=== PATIENT | female | born 1930 | race Caucasian/White ===

== ENCOUNTER 2017-09-27 13:22 | Inpatient (IN) | payer OTHER ==
[~2017-09-27] VITALS: Ht 152.4 cm; Wt 83.5 kg
[~2017-09-27 13:22] MED LIST: ADVAIR 250-501 EACH; ALBUTEROL0.63 MG/3 INH; ALBUTEROL2.5 MG/3 M IH; ALBUTEROL2.5 MG/31; ALBUTEROL2.5 MG/31 INH; ALLOPURINOL 10100 M1 PO; AMOXICILLIN 50500 MG PO; AMOXICILLIN875 MG; ASA5UEC PO; ASPIRIN EC81 M1 PO; ASPIRIN325 PO; AUGMENTIN 875875 MG PO; BENAZEPRIL HCL40 MG; BENTYL 10 MG CA10 MG PO; CALCIUM 600 +1 EAC1; CARDURA4 MG PO; CARVEDILOL12.5 MG PO; CARVEDILOL3.125 MG PO; CEFTIN500 MG PO; CIPRO500 MG PO; COLACE100 MG PO; DIALYVITE TABL1 EACH; DIAZEPAM 2MG TAB2 MG PO; DID NOT BRING LIST; DILTIAZEM 24HR180 M1 PO; DILTIAZEM ER180 M1; DUONEB 2.5-0.5 M3 ML; FENTANYL PA25 MCG/HR TRANSDERM; FIORICET 50-301 EACH PO; FISH OIL 1,0001 EAC8 PO; FLONASE 0.05%50 MCG NASAL; FOLIC ACID 1 MG1 MG; GLUCOPHAGE500 MG; HYDROCODON-ACE1 EAC5; HYDROCODON-ACE1 EAC5 PO; HYDROCODON-ACE1 EAC7 PO; K-DUR 20 MEQ T20 MEQ; KEFLEX500 MG PO; KENALOG60 GM TOP; KLOR-CON 10 ER10 MEQ PO; KLOR-CON 1010 MEQ PO; LANOXIN 0.120.125 M1 PO; LANOXIN 0.120.125 M2; LANTUS; LANTUS SUBQ; LASIX 40 MG TAB40 M1; LASIX 40 MG TAB40 M1 PO; LASIX 40 MG TAB40 M2 PO; LASIX 80 MG TAB80 MG PO; LIPITOR 20 MG T20 M1 PO; LISINOPRIL2.5 MG PO; LOTRIMIN30 GM; LOVASTAT40; LOVASTAT40 PO; LOVASTATIN; MACROBID 100 M100 M1 PO; MAGOX 400400 MG PO; MEDROLDOSEPACK PO; METOLAZONE 2.52.5 MG PO; MULTIVITAMINS; MULTIVITAMINS1 EAC7; NAMENDA 10 MG T10 MG PO; NAMENDA XR28 MG PO; NEURONTIN 300300 M1; NEURONTIN 300M300 M2 PO; NEXIUM40 MG PO; NORVASC 5 MG TAB5 MG PO; NOVOLOG FL100 UNIT/M SUBQ; NOVOLOG100 UNIT/1; NOVOLOG100 UNIT/1 SQ; NOVOLOG100 UNIT/1 SUBQ; OXYCODONE HCL40 MG PO; OXYCONTIN40 MG; PEPTO-BISM262 MG/15; PERCOCET 5-3251 EACH; PERCOCET 5-3251 EACH PO; PRAVASTATIN SOD10 MG PO; PROAIR HFA8.5 GM IH; PROTONIX40 M2; PROTONIX40 M2 PO; SEROQUEL 25 MG25 MG PO; SINGULAIR 10 MG10 M1 PO; SPIRONOLACTONE25 M1 PO; SYMBICORT160 MCG/4. INH; TRIAMCINOLONE ACE TOP; VALIUM5 MG PO; VENTOLIN HFA 1818 GM INH; VITAMIN C120 GM; VITAMIN E400 UNIT; WOMEN'S DAILY1 EAC2; ZOFRAN4 MG; ZOLOFT25 MG PO; ZOLOFT50 MG PO; ZYRTEC10 M2; ZYRTEC10 M2 PO; [UNRECOGNIZED DRUG - OTHER]
[2017-09-27 13:29] VITALS: BP 177/80
[2017-09-27] MEDS ORDERED: OXYBUTYNIN 5 MG5 M2 PO (13:36)
[2017-09-27] MEDS ORDERED: DURAGESIC1 EAC1 TRANSDERM (13:36)
[2017-09-27 13:58] LABS: ABSOLUTE EOSINOPHILS 0.1 thou/uL (0.0-0.7); ABSOLUTE LYMPHOCYTES 1.1 thou/uL (0.8-5.3); ABSOLUTE MONOCYTES 0.4 thou/uL (0.0-1.2); ABSOLUTE NEUTROPHILS 4.6 thou/uL (1.6-8.1); BASOPHILS 0.7 %; EOSINOPHILS 1.1 %; HEMATOCRIT 42.2 % (37.0-47.0); LYMPHOCYTES 17.3 %; MCH 30.9 pg (26.0-34.0); MCHC 33.3 g/dL (28.0-37.0); MCV 92.9 fL (80.0-100.0); MONOCYTES 6.4 %; NUCLEATED RBCS 0 /100WBC; PLATELET COUNT* 203 thou/uL (150-400); POLYS 74.5 %; RBC 4.55 mil/uL (4.20-5.00); RDW-CV 13.6 % (10.5-14.5); WBC 6.2 thou/uL (4.0-11.0)
[2017-09-27 13:58] LABS: URINE BLOOD NEGATIVE (Negative); URINE CLARITY CLEAR; URINE COLOR YELLOW; URINE GLUCOSE-RANDOM 3+ (Negative); URINE KETONES 2+ (Negative); URINE LEUKOCYTES-REFLEX NEGATIVE (Negative); URINE NITRITE-REFLEX NEGATIVE (Negative); URINE PROTEIN TRACE (Negative); URINE SPECIFIC GRAVITY 1.015 (1.005-1.030); URINE UROBILINOGEN 0.2 E.U./dl (0.2-1.0)
[2017-09-27 13:59] LABS: ICTOTEST (BILI CONFIRMATORY) Negative (Negative); URINE BILIRUBIN 1+ (Negative)
[2017-09-27 14:02] LABS: CALCIUM 9.5 mg/dL (8.5-10.1); CREATININE 1.2 mg/dL (0.6-1.3); POTASSIUM 4.1 mmol/L (3.5-5.1)
[2017-09-27 14:06] LABS: ALBUMIN 4.1 g/dL (3.4-5.0); TOTAL BILIRUBIN 0.7 mg/dL (<0.1-1.0); TOTAL PROTEIN 8.1 g/dL (6.4-8.2)
[2017-09-27 14:17] LABS: BE -5.7 mmol/L (-2 to +3); HCO3 19.2 mmol/L (22.0-26.0); PCO2 35.5 mmHg (35.0-45.0); PO2 85.6 mmHg (75.0-100.0)
[2017-09-27 16:59] VITALS: BP 172/80
[2017-09-27 17:25] VITALS: BP 152/76
--- NOTE | 2017-09-27 18:14 | NUR ---
PT ARRIVED TO THE FLOOR AT 1712. PT IS AWAKE BUT CONFUSED AND COMBATIVE. SHE WOULD NOT ALLOW THIS NURSE TO COMPLETE HER SKIN ASSEWSSMENT. SHE APPEARS TO HAVE SOME DISCOLORATION ON HER BUTTOCKS AND IN HER GROIN. SHE HAS SCATTERED BRUISING TO BUE AND HANDS, WELL A FEW SCABS AND SCARS TO HER FOREARMS. PT APPEARS TO BE SEEING THINGS SHE REACHES FOR THINGS THAT ARE NOT THERE AND SHE ALSO RESPONDS LIKE SHE HAS BEEN ASKED A QUESTION WHEN THERE IS NO ONE ELSE IN THE ROOM. NURSING WILL CONTINUE TO MONITOR.
[2017-09-27 21:30] VITALS: BP 147/68
[2017-09-28] VITALS: BP 134/58
[2017-09-28 04:34] VITALS: BP 147/57
--- NOTE | 2017-09-28 04:56 | NUR ---
Pt awake but confused at beginning of shift. Granddaughter and great-granddaughter in room visiting until around 2030 or 2100. Pt then drowsy/sleepy for remainder of shift. Turned q2h. Had not voided by 0245. Bladder scan showed 489 mls. Straight cath performed and yielded 375 mls concentrated yellow urine. Pt moaned during procedure, but did not fully awaken. At one point shortly afterward, pt opened her eyes and asked, "May I have some pain medicine?" and then closed her eyes. Attempted to clarify with her regarding how much pain and where, but pt did not respond. VSS. Will continue to monitor.
[2017-09-28 10:19] LABS: HEMATOCRIT 37.3 % (37.0-47.0); HEMOGLOBIN 12.6 gm/dL (12.0-15.0); MCH 31.1 pg (26.0-34.0); MCHC 33.9 g/dL (28.0-37.0); MCV 91.8 fL (80.0-100.0); MPV 9.3 fl. (7.2-11.1); RBC 4.06 mil/uL (4.20-5.00); RDW-CV 13.6 % (10.5-14.5); WBC 7.5 thou/uL (4.0-11.0)
[2017-09-28 10:26] LABS: CALCIUM 8.7 mg/dL (8.5-10.1); CREATININE 0.8 mg/dL (0.6-1.3); POTASSIUM 3.3 mmol/L (3.5-5.1)
[2017-09-28 11:30] VITALS: BP 143/64
--- NOTE | 2017-09-28 14:12 | NUR ---
CM ASSESSMENT: Spoke with Pt's granddaughter, Linda, via phone. Pt resides at home with granddaughter. Pt does have dementia. Granddtr states that Pt has been doing well at home, up until about 2-3 days ago, at which time Pt began hallucinating and being combative. There is always family at home with her 24 hours/day. Pt uses a walker or wc for mobility. Hx of HH and SNF at [facility], tiarrar states that she does [place], stating "she just hits at them, its not fair to the HH staff." Granddtr assist with bathing/grooming and does all of the cooking and cleaning. Pt is able to feed herself. Goal is for Pt to return home once medically stable. Following.
--- NOTE | 2017-09-28 16:28 | NUR ---
RECEIVED REPORT. ASSUMED CARE OF PT AT 0730. PT ALERT, ORIENTED TO SELF AND PLACE. VERY [place], WRITING ON WHITE BOARD TO COMMUNICATE. VSS, O2 SAT 96% ON RA. DRYING CAN WORKER IN PLACE SR. AM ASSESSMENT AND VITALS COMPLETED CHARTED. IV SALINE LOCKED AND WRAPPED WITH COBAN. PT STATED HER NECK HURT THIS AM - EDUCATED THAT PAIN MEDICATIONS ARE BEING HELD AT THIS TIME PER DR ORDER, TO ALLOW LOC TO IMPORVE. PT COMMUNICATES UNDERSTANDING AND STATES SHE IS "OKAY". PT HAS NOT COMPLIANED OF PAIN ANY MORE SO FAR THIS SHIFT. PT EATING AND DRINKING WITHOUT ISSUE. PT UP X1 ASSIST TO BEDSIDE COMMODE, LARGE BM NOTED. PT INCONTINENT OF URINE SOME IN THE BED, BUT CONTINUED TO VOID WHEN PLACED ON BEDSIDE COMMODE. FAMILY REPORTS SHE NEEDS REMINDERS TO VOID AND THAT SHE NEEDS TO BE PLACED ON COMMODE ROUTINELY. PT CLEANED UP AND IS NOW SITTING IN BEDSIDE RECLINER. FAMILY AT BEDSIDE THIS MORNING THROUGH LUNCH-TIME. PT COMPLETED U/S CAROTIDS AND EEG. SEE RESULTS. PT BEING REPOSITIONED FREQUENTLY. CALL LIGHT IS WITHIN REACH. HIGH FALL RISK PRECAUTIONS IN PLACE. HOURLY ROUNDING PERFORMED. WILL CONTINUE TO MONITOR.
[2017-09-28 16:45] VITALS: BP 141/56
--- NOTE | 2017-09-28 18:24 | NUR ---
PT REMAINS ALERT AND ORIENTED TO SELF AND PLACE. VVS. O2 SAT >90% ON RA. STITCHING MACHINE SETTER REMAINS IN PLACE WITH NO CHANGES THIS SHIFT. PT CONTIUES TO EAT AND DRINK WITHOUT ISSUE - MINIMAL SET UP REQUIRED. IV SALINE LOCKED. PT HAS DENIED PAIN OR DISCOMFORT THE REST OF THIS SHIFT. PT REPOSITIONED Q2HRS FOR COMFORT. PT CURRENTLY RESTING IN BEDSIDE CHAIR. CALL LIGHT IS WITHIN REACH, FALL PRECAUTIONS ARE IN PLACE. HOURLY ROUNDING PERFORMED. WCTM FOR DURATION OF SHIFT.
[2017-09-28 20:00] VITALS: BP 127/69
--- NOTE | 2017-09-28 23:15 | NUR ---
BEGAN CARE OF PT AT 1915, PT SLEPT DURING BED SIDE REPORT CHANGE, WAS IN THE RECLINER AT THAT TIME WITH CHAIR ALARM ON, DURING RE-ASSESSMENT PT WAS A/O TO NAME//LOCATION, VSS, FREE FROM SOA/PAIN WHEN ASKED, Q2T IN PLACE, HOURLY ROUNDING IN PLACE, FALL PRECAUTIONS IN PLACE WITH CHAIR ALARM ON AT THIS TIME, PT MOVED TO BED AT AND BED IN LOW LOCKED POSITION WITH ALARM SET, CALL LIGHT IN REACH, WHITE BOARD AT BEDSIDE DUE TO PT HARD OF HEARING, MEDS/ASSESSMENT PER CHARTING, WILL CONT TO MONITOR.
[2017-09-29] VITALS: BP 119/55
--- NOTE | 2017-09-29 02:46 | NUR ---
PT WAS BLADDER SCANNED PRIOR TO BEING UP TO BSC AND POST VOID, PT HAD >200 CC PRIOR TO VOIDING AND AFTER POST VOID 80'S CC REMAINED PER BLADDER SCANNER.
[2017-09-29 04:00] VITALS: BP 114/46; BP 142/74
--- NOTE | 2017-09-29 11:42 | NUR ---
Spoke with SLURRY TANK TENDER, plan dc tomorrow to home with family.
[2017-09-29 12:25] VITALS: BP 148/65
--- NOTE | 2017-09-29 12:57 | NUR ---
RECEIVED REPORT. ASSUMED CARE OF PT AROUND 0730. PT ALERT, ORIENTED TO PERSON AND SOMEWHAT PLACE; CONFUSED, BUT PLEASANT. VERY [place] - USING SMALL WHITE BOARD TO ASSIST WITH COMMUNICATION. VSS. O2 SAT 96% ON RA. CHERRY GROWER IN PLACE TRACING SR WITH 1 DEGREE AV BLOCK. AM ASESSMENT AND VITALS COMPLETED CHARTED. IV SALINE LOCKED. PT REPORTS BACK PAIN; UNABLE TO RATE. OPIOID PAIN MEDICATIONS BEING HELD PER DR ORDER; PT REPOSITIONED AND MADE MORE COMFORTABLE. PT DOES NOT APPEAR IN ANY PAIN OR DISCOMFORT - NO GRIMACING/SQUIRMING/FROWNING OR MOANING. WILL CONTINUE TO CLOSELY MONITOR FOR PAIN. PT EATING AND DRINKING WITHOUT ISSUE, MINIMAL SET UP NEEDED. PT UP TO BEDSIDE COMMODE WITH ASSIST X1 TO VOID - URINATING WITHOUT ISSUE. NO BM'S YET THIS SHIFT. MRSA SWAB PENDING. ISOLATION MAINTAINED. HIGH FALL RISK PRECAUTIONS IN PLACE. CALL LIGHT IS WITHIN REACH. WCTM. HOURLY ROUNDING PERFORMED.
[2017-09-29 15:20] VITALS: BP 116/56
--- NOTE | 2017-09-29 19:23 | NUR ---
PT PROGRESSING TOWARDS GOALS. VSS. O2 SAT REMAINS >90% ON RA. PT REMAINS ALERT ORIENTED TO SELF AND PLACE. ELECTRICAL TECHNICIAN INSTRUCTOR IN PLACE WITH NO CHANGES THIS SHIFT. IV SALINE LOCKED. PT HAS DENIED PAIN OR DISCOMFORT FOR THE REST OF THE SHIFT. DOES NOT APPEAR IN ANY PAIN - FLACC SCORE 0. PT EATING AND DRINKING WITHOUT ISSUE. PT UP WITH ASSIST X1 TO THE BEDSIDE COMMODE, VOIDING WITHOUT ISSUE. PT CURRENTLY RESTING IN BEDSIDE CHAIR. FALL PRECAUTIONS IN PLACE. CALL LIGHT IS WITHIN REACH. HOURLY ROUNDING PERFORMED.
[2017-09-29 20:00] VITALS: BP 132/71
[2017-09-30] VITALS: BP 120/70
[2017-09-30 04:00] VITALS: BP 126/73
--- NOTE | 2017-09-30 05:59 | NUR ---
ASSUMED CARE OF PT AT 1930, NURSING ASSESSMENT COMPLETED AT START OF SHIFT, NO S/S OF PAIN OBSERVED AT START OF SHIFT. PT ON TELE MONITOR, TRACING SINUS RHYTHM WITH 1ST DEGREE AV BLOCK. PT ALERT TO SELF, SITTING IN BEDSIDE RECLINER, REQUIRES PROMPTING TO VOID, REFUSED TO IN BED THIS SHIFT, HOURLY ROUNDING COMPLETED, FALL PRECAUTIONS IN PLACE, CALL LIGHT WITHIN REACH. NO FALLS THIS SHIFT. PT C/O BACK PAIN AT 0600, DR. RUIZ NOTIFIED, AWAITING CALL BACK FOR ORDERS.
--- NOTE | 2017-09-30 07:30 | NUR ---
ASSUMED CARE OF PT ASSESSED AND DOCUMENTED. PT IS ON CARDIAC MONITER TRACING SR 1ST DEGREE. PT IS ALERT TO SELF. SHE LAUGHS WHENEVER I ENTER THE ROOM. SHE IS EXTREMELY [place] AND STATES SHE LOST HER HEARING AID. 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 SHE IS ON FALL RISK PER FACILITY PROTOCOL. PT IS ON ROOM AIR AND HAS NO C/O PAIN. BED IS IN LOW POSITION CALL LIGHT IS IN REACH. WM.
[2017-09-30 08:00] VITALS: BP 141/69
--- NOTE | 2017-09-30 11:18 | NUR ---
Pt discharging to home today. Updated Pt's son, unable to reach Pt's granddtr, Linda, VM is full and not taking messages. No needs.
[2017-09-30 11:35] VITALS: BP 134/61
[2017-09-30 13:01] VITALS: BP 134/61
--- NOTE | 2017-09-30 17:37 | NUR ---
PT D/C'D TO HOME. IV AND CARDIAC MONITER D/C'D. ALL CONSULTS OK WITH D/C. EDUCATION GIVEN RE FOLLOW-UP, MEDICATIONS, AND DR ORDERS TO DPOA. ALL BELONGINGS PACKED UP AND LEFT WITH PT ACCOMPANIED BY FAMILY MEMBER AND STAFF.
--- NOTE | 2017-10-06 19:10 | CON ---
[address] [address] CONSULTATION Name: MELODY GARCIA Room: [address] IN M.R.#: [id number] Admission: 09/27/17 Attend Phys: Hong Epps MD Discharge: 09/30/17 Date of : 31 Report #: [id number] THIS REPORT FOR: //name// CC: Hong Kolb DATE OF SERVICE: 09/28/2017 HISTORY OF PRESENT ILLNESS: This is an 87-year-old female patient who was evaluated by me for altered mental status. This patient's history is very difficult to determine. The patient is extremely hard of hearing. She has large records in the computer and I reviewed that. Apparently, she had some hallucination and combativeness and some paranoia yesterday. She said she does not remember that. Apparently, there was some speech difficulty also when it happened and they were not able to understand what she was saying. REVIEW OF SYSTEMS: Mostly from the record because this patient is not able to hear very well. This patient was seen by Dr. Badillo in the middle of last year and looks like at that time, this patient had presented with difficulty with speaking. That time also she had a UTI. They did some workup at that time on this patient and looks like the workup included an MRI of the brain as well as MRA of the head. They were both unremarkable except for possibility of atherosclerotic disease in the brain. She did not have a carotid Doppler at that time, but she did have a carotid Doppler done in 2013, which was unremarkable. She also had other MRIs done in the past and in fact in 2012, she had an MRA of the carotid, which was unremarkable. In 2013, she also had an MRA of the head and that was also unremarkable. In 2013, she was also admitted with some speech difficulty. She also had multiple other symptoms at that time. Review of system is also positive for being very hard of hearing. She had some underlying dementia, the extent of which is not known. She also has problem with pain medications. Previously, she had chest pain, but does not look like she is having any active chest pain now. She has been on multiple medications and looks like she has a history of aortic stenosis, diabetes, skin cancer. There was a question of atrial fibrillation, colon resection, hypertension. She has chronic kidney disease. She has a diastolic CHF. I carried out 14-point review of system and looks like this is her relevant 14-point review of system. PAST MEDICAL HISTORY: Positive for a history of encephalopathy. FAMILY HISTORY: According to her is negative for early age stroke. SOCIAL HISTORY: She said she does not smoke and does not drink alcohol. PHYSICAL EXAMINATION: Limited because of her hearing problems, but she is responsive. She can talk. She does not know what month it is. She did not get the day right either, but speech looks intact. Cranial nerve examination [address] [place] [address] CONSULTATION Name: MELODY GARCIA Room: [address] IN ..#: [id number] Admission: 09/27/17 Attend Phys: Hong Epps MD Discharge: 09/30/17 Date of : 31 Report #: [id number] was attempted, the best I can tell, it does not appear to show any focality. Strength, sensation, reflexes and tone looks symmetrical. There is no cerebellar sign. She could not cooperate with the fundus examination. There is no meningeal sign. There is no carotid bruit. There is no thyroid mass. Pulses are difficult to feel, but she has no edema, cyanosis or jaundice. She is a reasonably well-built individual who does not have any dysmorphic features of eyes, ears and face. Her hearing is markedly impaired, but vision looks intact. Cardiac examination does not appear to be showing any abnormality of the heart sounds, though there may be a murmur there. The patient does not have any respiratory difficulty and does not appear to have any rhonchi. Blood pressure is 147/57, respirations 18, pulse 88, temperature is 98. LABORATORY DATA: Indicate a normal white count and normal sodium. She did not have any imaging study of the brain. IMPRESSION: 1. Altered mental status. 2. History of speech difficulty, but the patient has similar speech difficulty since 2012 by review of the records. 3. History of hallucination, which is probably because of psychiatric reasons and behavior disturbances for dementia. 4. Significant dementia. 5. 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 RECOMMENDATIONS: 1. Minimize psychotropic and pain medication. 2. Speech difficulty may be just part of encephalopathy. It is unlikely to be TIA, but because of a prior MRI report, we will exclude that. 3. For encephalopathy, basically watch and see if she becomes better. 4. I agreed with discussion with the family to see how aggressive they want to be and it will be desirable to be very conservative in this patient and may be even limit the workup in the future. Thank you very much for this referral. <ELECTRONICALLY SIGNED> By: Kranthi Garcia MD 10/06/17 1910 1022 [id number] Garcia MD /isaac
--- NOTE | 2017-10-06 19:10 | EEG ---
[address] [address] EEG STUDY REPORT Name: MELODY GARCIA Room: [address] IN M.R.#: [id number] Admission: 09/27/17 Attend Phys: Hong Epps MD Discharge: 09/30/17 Date of : 31 Report #: [id number] THIS REPORT FOR: //name// CC: Hong Kolb DATE OF SERVICE: 09/28/2017 DATE OF EE09/28/2017. This patient is being evaluated for confusion. Background activity in this patient's EEG is about 8 Hz and 30 microvolts. It is intermixed with theta range slowing on both sides. Photic stimulation was unremarkable. Throughout the record, no active epileptiform activity was noticed. IMPRESSION: This patient's EEG is intermixed with theta range slowing on both sides. There is a nonspecific abnormality, which can occur with encephalopathy, effect of psychotropic medication, dementia, etc. Clinical correlation is recommended. <ELECTRONICALLY SIGNED> By: Kranthi Garcia MD 10/06/17 1910 1028 1041Pdesiree Garcia MD /nt
== END 2017-09-30 17:07 | disposition home or self-care (01) | DRG 91 ==
LOC: M.ERS 13:22 → M.2W 15:53 → M.TBA-ER 15:53 → M.2W 17:35
PROVIDERS: Personal Emergency Response Attendant; ADMIT Internal Medicine
PROC: 4A00X4Z Measurement of Central Nervous Electrical Activity, External Approach (ICD-10-PCS; principal; 2017-09-30)
DX: G92 Toxic encephalopathy (principal); E11.00 Type 2 diabetes mellitus with hyperosmolarity without nonketotic hyperglycemic-hyperosmolar coma (NKHHC); I13.0 Hypertensive heart and chronic kidney disease with heart failure and stage 1 through stage 4 chronic kidney disease, or unspecified chronic kidney disease; I50.32 Chronic diastolic (congestive) heart failure; F11.20 Opioid dependence, uncomplicated; F01.50 Vascular dementia, unspecified severity, without behavioral disturbance, psychotic disturbance, mood disturbance, and anxiety; E11.22 Type 2 diabetes mellitus with diabetic chronic kidney disease; N18.3 Chronic kidney disease, stage 3 (moderate); H91.93 Unspecified hearing loss, bilateral; J44.9 Chronic obstructive pulmonary disease, unspecified; I35.0 Nonrheumatic aortic (valve) stenosis; M17.0 Bilateral primary osteoarthritis of knee; I48.91 Unspecified atrial fibrillation; E66.9 Obesity, unspecified; T40.605A Adverse effect of unspecified narcotics, initial encounter; Y92.89 Other specified places as the place of occurrence of the external cause; Z68.35 Body mass index [BMI] 35.0-35.9, adult; Z85.828 Personal history of other malignant neoplasm of skin; Z90.49 Acquired absence of other specified parts of digestive tract; Z90.79 Acquired absence of other genital organ(s); Z90.721 Acquired absence of ovaries, unilateral; Z86.14 Personal history of Methicillin resistant Staphylococcus aureus infection; Z79.4 Long term (current) use of insulin; Z79.51 Long term (current) use of inhaled steroids; Z79.82 Long term (current) use of aspirin; Z79.899 Other long term (current) drug therapy; Z88.2 Allergy status to sulfonamides; Z88.8 Allergy status to other drugs, medicaments and biological substances; Z88.1 Allergy status to other antibiotic agents; Z91.041 Radiographic dye allergy status; Z82.49 Family history of ischemic heart disease and other diseases of the circulatory system; Z80.8 Family history of malignant neoplasm of other organs or systems

== ENCOUNTER 2017-10-23 14:58 | Inpatient (IN) | payer OTHER, MEDICAID ==
[~2017-10-23] VITALS: Ht 172.7 cm; Wt 86.2 kg
[2017-10-23 14:58] VITALS: BP 183/96
[~2017-10-23 14:58] MED LIST changes: +DURAGESIC1 EAC1 TRANSDERM; +OXYBUTYNIN 5 MG5 M2 PO
[2017-10-23] MEDS ORDERED: CLONAZEPAM 0.50.5 M1 PO (15:27)
[2017-10-23] MEDS ORDERED: ARIPIPRAZOLE2 MG PO (15:27)
[2017-10-23] MEDS ORDERED: SEROQUEL 50 MG50 MG PO (15:28)
[2017-10-23 17:00] LABS: URINE BILIRUBIN NEGATIVE (Negative); URINE BLOOD TRACE (Negative); URINE CLARITY CLEAR; URINE COLOR YELLOW; URINE GLUCOSE-RANDOM 3+ (Negative); URINE KETONES 2+ (Negative); URINE LEUKOCYTES-REFLEX NEGATIVE (Negative); URINE NITRITE-REFLEX NEGATIVE (Negative); URINE PROTEIN NEGATIVE (Negative); URINE SPECIFIC GRAVITY 1.015 (1.005-1.030); URINE UROBILINOGEN 0.2 E.U./dl (0.2-1.0)
[2017-10-23 17:21] LABS: ABSOLUTE EOSINOPHILS 0.1 thou/uL (0.0-0.7); ABSOLUTE LYMPHOCYTES 1.5 thou/uL (0.8-5.3); ABSOLUTE MONOCYTES 0.5 thou/uL (0.0-1.2); ABSOLUTE NEUTROPHILS 3.4 thou/uL (1.6-8.1); BASOPHILS 0.8 %; EOSINOPHILS 1.4 %; HEMATOCRIT 43.1 % (37.0-47.0); HEMOGLOBIN 14.6 gm/dL (12.0-15.0); LYMPHOCYTES 27.8 %; MCH 31.2 pg (26.0-34.0); MCHC 33.8 g/dL (28.0-37.0); MCV 92.2 fL (80.0-100.0); MONOCYTES 8.6 %; NUCLEATED RBCS 0 /100WBC; PLATELET COUNT* 230 thou/uL (150-400); POLYS 61.4 %; RBC 4.68 mil/uL (4.20-5.00); WBC 5.5 thou/uL (4.0-11.0)
[2017-10-23 17:28] LABS: CALCIUM 9.5 mg/dL (8.5-10.1); CREATININE 0.9 mg/dL (0.6-1.3); POTASSIUM 3.6 mmol/L (3.5-5.1)
[2017-10-23 17:33] LABS: ALBUMIN 3.6 g/dL (3.4-5.0); TOTAL BILIRUBIN 0.9 mg/dL (<0.1-1.0); TOTAL PROTEIN 7.6 g/dL (6.4-8.2)
[2017-10-23 19:31] VITALS: BP 145/68
[2017-10-23 20:00] VITALS: BP 163/85
[2017-10-24 00:09] VITALS: BP 114/50
[2017-10-24 04:15] VITALS: BP 115/56
[2017-10-24 05:03] LABS: HEMATOCRIT 37.5 % (37.0-47.0); HEMOGLOBIN 12.9 gm/dL (12.0-15.0); MCH 30.9 pg (26.0-34.0); MCHC 34.3 g/dL (28.0-37.0); MCV 90.2 fL (80.0-100.0); RBC 4.16 mil/uL (4.20-5.00); RDW-CV 13.9 % (10.5-14.5); WBC 6.4 thou/uL (4.0-11.0)
--- NOTE | 2017-10-24 05:15 | NUR ---
PT ADMITTED FROM ER. HISTORY AND ASSESSMENT COMPLETE. SR/1ST DEGREE/BBB ON MONITOR. PT VERY CONFUSED AND VERY [place]. STATES SHE LOST HER HEARING AIDES. BG UPON ARRIVAL 396. DR TARIQ NOTIFIED. SSI ORDERED AND GIVEN. PER PT FAMILY SHE USES A WHEELCHAIR AT HOME. CAN TRANSFER WITH ASSIST. ORIENTED TO ROOM, BED CONTROLS AND CALL LIGHT. CALL LIGHT IN PT REACH. BED IN LOWEST POSITION.
[2017-10-24 05:20] LABS: CALCIUM 8.8 mg/dL (8.5-10.1); CREATININE 0.8 mg/dL (0.6-1.3); MAGNESIUM 1.5 mg/dL (1.8-2.4)
[2017-10-24 05:29] LABS: POTASSIUM 2.7 mmol/L (3.5-5.1)
[2017-10-24 07:30] VITALS: BP 116/62
--- NOTE | 2017-10-24 10:57 | NUR ---
CM ASSESSMENT: Pt known to this CM from previous hospital stay. Pt has dementia, resides at home with her granddtr, who is her primary caregiver. Gdtr does cooking, cleaning and driving, gdtr assists with all IADLS. Pt uses a walker or wc for mobility. [place] [facility] gdtr declines either at dc. Supportive family that is involved in POC, Pt has a family member available to her 31/01. Goal is to return home once medically stable. Following.
[2017-10-24 12:07] VITALS: BP 138/70
--- NOTE | 2017-10-24 17:11 | NUR ---
VSS, PT IS PROGRESSING TOWARDS GOAL, PT IS UP WITH ONE AND CALL LIGHT IN REACH, PT IS ON RA AND IS TRACING ST ON THE MONITOR, PT DENIES ANY PAIN, SHE IS CONFUSED, BUT NOT IMPULSIVE, PT HAS BEEN UP IN CAHIR FOR MOST OF THE DAY, PT HAS NO OTHER STATUS CHANGE AT THIS TIME, HOURLY ROUNDS COMPLETED AND HOURLY ROUNDS COMPLETED.
--- NOTE | 2017-10-24 17:49 | EKG ---
[place] [address] ELECTROCARDIOGRAM REPORT Name: TACOSBRISAMELODY ALICE Room: [address] ADM IN .R.#: [id number] Admission: 10/23/17 Attend Phys: Johanna Elias MD Discharge: Date of : 31 Report #: [id number] THIS REPORT FOR: //name// [facility] ED Test Date: 2017-10-23 Test Time: 17:22:03 Pat Name: MELODY GARCIA Department: Room: [facility] Gender: F Assigner: MOISES : 1930 Requested By: Katie Landry Order Number: [id number] MD: Yasmany Jo Measurements Intervals [place] Rate: 114 P: 39 [place]: 115 QRS: -72 QRSD: 127 T: 63 QT: 398 QTc: 549 Interpretive Statements Sinus tachycardia RBBB and LAFB Left ventricular hypertrophy Compared to ECG 07/22/2016 11:29:23 Sinus rhythm no longer present Electronically Signed On 10-24-2017 17:49:26 CDT by Yasmany Jo [email or web address] <ELECTRONICALLY SIGNED> By: Yasmany Jo MD, FACC 10/24/17 1749 1722 172 Yasmany Jo MD, FAC /EPI
--- NOTE | 2017-10-24 17:56 | NUR ---
PATIENT WAS 96%, 111 HR ON ROOM AIR
[2017-10-24 20:00] VITALS: BP 114/55
[2017-10-25] VITALS (8 sets, daily range): BP systolic 107–138; BP diastolic 50–78
--- NOTE | 2017-10-25 03:36 | NUR ---
ASSUMED PT CRAE AT 1930, PT IS AWAKE AND ALERT TO ALEF, PT WAS PRETTY DROWSY THIS SHIFT, WAS AWAKE TO TAKE EVENING MEDICATION THEN WENT BACK TO SLEEP. PT IS TRACING NSR ON THE MONITOR, ON RA SATTING MID TO HIGH 90'S. IVF INFUSING PER MAR. SHE IS UP WITH ONE, PT DID NOT GET OUT OF BED THIS SHIFT. PT IS ON ISOLATION FOR MRSA IN THE NARES. BED IN LOW POSITION, CALL LIGHT IN REACH, BED ALARM ON, YELLOW ARM BAND AND SOCKS IN PLACE. HOURLY ROUNDING COMPLETED FOR PT SAFETY.
[2017-10-25 05:28] LABS: ABSOLUTE EOSINOPHILS 0.1 thou/uL (0.0-0.7); ABSOLUTE LYMPHOCYTES 2.1 thou/uL (0.8-5.3); ABSOLUTE MONOCYTES 0.6 thou/uL (0.0-1.2); ABSOLUTE NEUTROPHILS 2.9 thou/uL (1.6-8.1); BASOPHILS 0.7 %; EOSINOPHILS 1.4 %; HEMATOCRIT 35.4 % (37.0-47.0); HEMOGLOBIN 12.1 gm/dL (12.0-15.0); LYMPHOCYTES 36.7 %; MCHC 34.1 g/dL (28.0-37.0); MCV 90.8 fL (80.0-100.0); MONOCYTES 11.3 %; MPV 9.7 fl. (7.2-11.1); NUCLEATED RBCS 0 /100WBC; PLATELET COUNT* 217 thou/uL (150-400); POLYS 49.9 %; RDW-CV 14.2 % (10.5-14.5); WBC 5.7 thou/uL (4.0-11.0)
[2017-10-25 05:54] LABS: CALCIUM 8.8 mg/dL (8.5-10.1)
--- NOTE | 2017-10-25 10:14 | NUR ---
Spoke with Pt's DPOA/gdtr regarding disposition. DPOA wants to place Pt in a LTC facility. Faxed referral to [facility] per DPOA's request.
--- NOTE | 2017-10-25 10:32 | NUR ---
ASSUMED CARE OF PT AT 0730. PT SITTING UP WAITING FOR BREAKFAST. PT A&0X4, FORGETFUL AND CONFUSED AT TIMES. PT VERY [place]. STATES SHE LOST HER HEARING AIDE AWHILE BACK. COMMUNICATION THROUGH PAPER AND WHITEBOARD IS SUCCESSFUL. PT IN CONTACT ISOLATION FOR MRSA NARES. PT TRACING SR ON THE STALLION KEEPER. PT ON RA SAT 93%. PT DENIES ANY PAIN OR SHORTNESS OF BREATH AT THIS TIME. IVF. PT UP WITH 1 ASSIST TO BSC. PT GOAL FOR TODAY IS UP TO CHAIR FOR MEALS, INCREASE ACTIVITY AND DISCHARGE HOME VS SNF. PT PROGRESSING TOWARDS GOALS AND ACUTE CONFUSION SEEMS TO HAVE RESOLVED. AM ASSESSMENT CHARTED. MEDICATIONS PER SEP. PT REPOSITIONED EVERY 2 HOURS FOR COMFORT. HOURLY ROUNDING OBSERVED. BED IN LOW POSITION. BED ALARM IN PLACE. FALL PRECAUTIONS IN PLACE. CALL LIGHT WITHIN REACH. WILL CONTINUE PLAN OF CARE.
--- NOTE | 2017-10-25 17:08 | NUR ---
NO ACUTE CHANGES THROUGHOUT SHIFT. REFER TO CHARTING. PT WORKED WITH PHYSICAL AND OCCUPATIONAL THERAPY TODAY. TOLERATED WELL. PT UP TO RECLINER FOR MEALS. PT PROGRESSING TOWARDS GOALS. PLAN IS FOR DISCHARGE TO SNF TOMORROW 10/26. PT CONTINUES TO BE A&0X4, FORGETFUL AND CONFUSED AT TIMES, ZUNI. IN CONTACT ISOLATION FOR MRSA NARES. CONTINUES TO TRACE SR WITH FIRST DEGREE ON THE WATER QUALITY SPECIALIST. ON RA SAT UPPER 90'S. DENIES ANY PAIN OR SHORTNESS OF BREATH. VISITORS AT BEDSIDE THIS AFTERNOON. PT UP WITH 1 ASSIST BSC. PT INCONT OF BOWEL AND BLADDER AT TIMES. MEDICATIONS PER SEP. PT REPOSITIONED EVERY 2 HOURS FOR COMFORT. HOURLY ROUNDING OBSERVED. BED IN LOW POSITION. BED ALARM IN PLACE. FALL PRECAUTIONS IN PLACE. CALL LIGHT WITHIN REACH. WILL CONTINUE PLAN OF CARE.
--- NOTE | 2017-10-25 17:26 | CON ---
[address] [address] CONSULTATION Name: MELODY GARCIA Room: [address] ADM IN M.R.#: [id number] Admission: 10/23/17 Attend Phys: Johanna Elias MD Discharge: Date of : 31 Report #: [id number] THIS REPORT FOR: //name// CC: Johanna Kolb DATE OF SERVICE: 10/24/2017 HISTORY OF PRESENT ILLNESS: This is an 87-year-old female patient who is unable to provide any reliable history. The patient cannot hear, and she indicates that she has lost her hearing aid. I reviewed the records in the computer, and it looks like she was admitted because she was behaving erratically. She does not remember what happened. It looks like there was some family dispute between her and the [id number], and she was having unusual behavior, but she said she is doing okay and in fact wants to go home. I spent a lot of time, but I cannot get a good history in this patient because this patient is not having hearing aid with her, and she is extremely hard of hearing. It looks like she had a pretty severe behavior disturbances yesterday, but she is better today. Apparently, there was no associated focal deficit, and the best I can tell, she is not having any headache. REVIEW OF SYSTEMS: Indicates that she had a problem with becoming violent, but the patient was pleasant in the ambulance ride, and she is pleasant with me. A 14-point review of system was carried out, but it is all from the records. She is very hard of hearing. She had tubes and ovaries removed in the past. She has a history of breast mass, history of hypertension, colon resection, bladder repair, COPD, arthritis. One time she had atrial fibrillation and she is a diabetic as I understand. She has a history of pneumonia, aortic stenosis and one of the record says that she has vascular dementia. She is on medication and looks like she is on memantine. This was her relevant 14-point review of system. PAST MEDICAL HISTORY: Positive for dementia as per history, but I do not have any confirmation of that. FAMILY HISTORY: Negative for early age dementia. SOCIAL HISTORY: When I asked her if she drinks alcohol, she said no, but I do not know whether she understands things or not. PHYSICAL EXAMINATION: Very difficult to carry out. She is very hard of hearing. She does have a speech, I cannot tell whether she is oriented, what her memory and fund of knowledge is. She basically wants to go home. Cranial nerve examination 2-12 was attempted. There does not appear to be any definite abnormality. It looks like her strength, sensation, reflexes [place] [address] CONSULTATION Name: MELODY GARCIA Room: [address] IN M.R.#: [id number] Admission: 10/23/17 Attend Phys: Johanna Elias MD Discharge: Date of : 31 Report #: [id number] symmetrical the best I can tell. Because of her hearing problem, she does not understand the instruction for cerebellar sign. I tried to look at the fundus. Her pupils are small, I could not have a very good look at it. There is no meningeal sign. There is no carotid bruit. Her pulses are difficult to feel. She is moderately well-built individual who does not have any dysmorphic features of eyes, ears and face. Her vision looks adequate. She is markedly impaired as far as hearing is concerned. Cardiac examination shows that she does not appear to be in atrial fibrillation now. She does not have any respiratory difficulty or rhonchi. VITAL SIGNS: Her blood pressure is 116/62, respirations 20, pulse is 105, temperature is 98.2. LABORATORY DATA: Her white count is 6.4, potassium is 2.7. It is not known what her blood sugar was when this happened, but blood sugar here was 421. IMPRESSION: I am not sure what the etiology of the patient's symptoms are because this patient appeared to be back to her baseline. I reviewed her old records, and she was seen by me as well as she was seen by Dr. Badillo in the past. At one time, she presented with speech difficulty, and other time, she presented with altered mental status. She had a workup in the past, and her MRI was unremarkable, but MRA indicates some motion artifact or disease. She is on psychotropic medication which complicated the situation, and either the psychotropic medication, underlying psychiatric problem can cause these symptoms. RECOMMENDATIONS: 1. I would recommend reviewing the workup again in this patient if she is able to cooperate. I will get an MRI and MRA in this patient again. 2. We will get an EEG. 3. If it is possible, I will suggest getting a psychiatric consult in this patient. 4. The family need to decide how much they can handle at home and how much they need to send him to some supervised living. Thank you very much for this referral. <ELECTRONICALLY SIGNED> By: Kranthi Garcia MD 10/25/17 1726 0940 [id number] Garcia MD /nt
--- NOTE | 2017-10-25 17:26 | EEG ---
[address] [address] EEG STUDY REPORT Name: ASYAAMADAMELODY ALICE Room: [address] IN M.R.#: [id number] Admission: 10/23/17 Attend Phys: Johanna Elias MD Discharge: Date of : 32 Report #: [id number] THIS REPORT FOR: //name// CC: Johanna Kolb DATE OF SERVICE: 10/24/2017 This patient's EEG was done because of altered mental status. EEG was done by placing the electrodes by standard 10/20 system of electrode placement. Both referential and sequential montages were used for recording. Background activity in this patient's EEG is about 8 Hz and 30 microvolts. It is a symmetrical activity. The patient went to sleep that is associated with bilaterally symmetrical sleep spindle and vertex sharp waves. Photic stimulation was unremarkable. Throughout the record, no active epileptiform activity was noticed. IMPRESSION: This patient's EEG is intermixed with theta range slowing on both sides. That is a nonspecific abnormality, which can occur with encephalopathy, effect of psychotropic medication, dementia, etc. Clinical correlation is recommended. <ELECTRONICALLY SIGNED> By: Kranthi Garcia MD 10/25/17 1726 [id number] Garcia MD /nt
--- NOTE | 2017-10-26 03:15 | NUR ---
PT ALERT ORIENTED TO SELF AND PLACE. VERY MECHOOPDA. PT STATES SHE LOST HEARING AID AT HOME. IMPULSIVE FORGETFUL. GETS OOB TO [facility] WITH OUT WAITING FOR NURSE. PT FREQUENTLY INSTRUCTED TO WAIT FOR NURSE TO ASSIST. TELEMETRY SHOWS SR. VOIDS CLEAR YELLOW. ON RA. WILL CONTINUE TO MONITOR.
[2017-10-26 03:18] VITALS: BP 124/39
--- NOTE | 2017-10-26 07:20 | NUR ---
CHANGE OF SHIFT, BEDSIDE REPORT GIVEN ASSUMED PATIENT CARE PATIENT SEEN AT BEDSIDE, ASLEEP BED ALARM ON
[2017-10-26 08:00] VITALS: BP 117/72
[2017-10-26 08:15] VITALS: BP 117/72
--- NOTE | 2017-10-26 10:13 | NUR ---
Faxed therapy evals to [facility], they submitted for insurance auth for skilled.
--- NOTE | 2017-10-26 11:21 | NUR ---
Pt discharging to [facility] today, facility to [facility] at 1pm. Left VM for Pt's granddtr/DPOA regarding disposition. Faxed dc orders. Chart copied. Nurse report number provided, .
[2017-10-26 12:38] VITALS: BP 109/50
--- NOTE | 2017-10-26 13:10 | NUR ---
PATIENT DISCHARGED TO SNF DISCHARGE INFO AND CHART COPIES SENT IV AND HEART MONITOR REMOVED PERSONAL BELONGINGS RETURNED ASSISTED OUT VIA WC TO WC VAN
== END 2017-10-26 13:10 | DRG 637 ==
LOC: M.ERS 14:58 → M.2W 18:24 → M.TBA-ER 18:24 → M.2W 19:39
PROVIDERS: Internal Medicine; Personal Emergency Response Attendant; ADMIT Internal Medicine
DX: E11.65 Type 2 diabetes mellitus with hyperglycemia (principal); G93.40 Encephalopathy, unspecified; I13.0 Hypertensive heart and chronic kidney disease with heart failure and stage 1 through stage 4 chronic kidney disease, or unspecified chronic kidney disease; F01.51 Vascular dementia, unspecified severity, with behavioral disturbance; I50.32 Chronic diastolic (congestive) heart failure; H91.93 Unspecified hearing loss, bilateral; E86.0 Dehydration; E87.6 Hypokalemia; I35.0 Nonrheumatic aortic (valve) stenosis; J44.9 Chronic obstructive pulmonary disease, unspecified; I48.91 Unspecified atrial fibrillation; N18.3 Chronic kidney disease, stage 3 (moderate); E11.22 Type 2 diabetes mellitus with diabetic chronic kidney disease; Z90.49 Acquired absence of other specified parts of digestive tract; Z85.828 Personal history of other malignant neoplasm of skin; Z79.51 Long term (current) use of inhaled steroids; Z79.82 Long term (current) use of aspirin; Z79.4 Long term (current) use of insulin; Z79.899 Other long term (current) drug therapy; Z90.79 Acquired absence of other genital organ(s); Z90.721 Acquired absence of ovaries, unilateral; Z88.2 Allergy status to sulfonamides; Z88.8 Allergy status to other drugs, medicaments and biological substances; Z88.1 Allergy status to other antibiotic agents; Z91.041 Radiographic dye allergy status; Z82.49 Family history of ischemic heart disease and other diseases of the circulatory system; Z80.8 Family history of malignant neoplasm of other organs or systems